=== PATIENT | male | born 1990 | race Two or more races ===

== ENCOUNTER 2019-01-09 16:56 | Emergency (ER) | payer SELFPAY ==
[~2019-01-09] VITALS: Ht 167.6 cm; Wt 81.6 kg
[2019-01-09 21:15] VITALS: BP 133/89
== END 2019-01-09 23:14 | disposition home or self-care (01) ==
LOC: ER 17:05
DX: S62.646A Nondisplaced fracture of proximal phalanx of right little finger, initial encounter for closed fracture (principal); I10 Essential (primary) hypertension; F17.210 Nicotine dependence, cigarettes, uncomplicated; W22.8XXA Striking against or struck by other objects, initial encounter; Y93.89 Activity, other specified; Y99.8 Other external cause status; Y92.89 Other specified places as the place of occurrence of the external cause
CPT/HCPCS: 29125; 29130; 73130

== ENCOUNTER 2020-01-22 11:29 | Emergency (ER) | payer MEDICAID, OTHER ==
[~2020-01-22] VITALS: Ht 167.6 cm; Wt 88.5 kg
[2020-01-22 11:38] VITALS: BP 165/98
== END 2020-01-22 13:30 | disposition home or self-care (01) ==
LOC: ER 11:29
DX: I10 Essential (primary) hypertension (principal); Z91.19 Patient's noncompliance with other medical treatment and regimen; F17.210 Nicotine dependence, cigarettes, uncomplicated